=== PATIENT | female | born 1980 | race Caucasian/White ===

== ENCOUNTER 2017-02-08 03:21 | Emergency (ER) | payer SELFPAY ==
[~2017-02-08] VITALS: Ht 167.6 cm; Wt 71.0 kg
[2017-02-08 03:26] VITALS: Ht 167.6 cm; Wt 71.0 kg
[2017-02-08 04:16] VITALS: BP 107/70; PULSE 68; RESP 17
--- NOTE | 2017-02-08 04:51 | ERD ---
ER Documentation Chief Complaint Chief Complaint bib friends for etoh, HPI Patient is a 36-year-old female who presents with alcohol intoxication causing her to have difficulty standing and speaking. Her friends state that they were drinking vodka with T prior to going to an art show. They also drink beer at the art show. The patient denies using any drugs. She denies amnesia to events. According to friends, the patient was missing for 1 hour. The patient states that she was wandering around the art show. When the friends found the patient she seemed very intoxicated and they were concerned so they called 911. She is brought to the ER by ambulance. After arrival she became more alert. She denies injury or fall. She denies emotional upset or other ingestion. She denies any physical complaints at this time. The patient states that she did not eat well today. She denies vomiting. ROS All systems reviewed and are negative except as per history of present illness. Allergies Allergies: Coded Allergies: No Known Allergy (Unverified , 02/08/17) PMhx/Soc Past medical's medical history: None Past surgical history: None Social history: Drinks alcohol, denies tobacco or illicit drug FmHx Family History: No coronary disease, No diabetes Physical Exam Vitals Vital Signs Date Time Temp Pulse Resp B/P Pulse Ox O2 Delivery O2 Flow Rate FiO2 02/08/17 04:16 68 17 107/70 100 Room Air 02/08/17 03:26 98.5 105 18 115/73 100 Physical Exam Const: Alert, no acute distress Head: Atraumatic Eyes: Normal Conjunctiva, No pallor, no icterus ENT: Normal External Ears, Nose and Mouth. Mucous membranes moist Neck: Full range of motion..~ No meningismus. Resp: Clear to auscultation bilaterally Cardio: Regular rate and rhythm, no murmurs Abd: Soft, non tender, non distended. Normal bowel sounds Skin: No petechiae or rashes Back: No midline or flank tenderness Ext: No cyanosis, or edema Neur: Awake and alert, Cranial nerves II through XII intact bilaterally, strength and sensation full in 4 extremities, mild slurred speech Psych: Normal Mood and Affect, Appears slightly embarrassed Procedures/MDM MDM: Patient is a 36-year-old female who presents to the ER with alcohol intoxication causing her to have lethargy requiring assistance from her friends. Shortly after arrival to the ER, the patient returned to her baseline. She has very mild residual signs of intoxication and is able to interact with me appropriately. She has capacity for decision-making, and states that she would like to go home. There is no evidence of any psychiatric condition, coingestion, or trauma. She is asymptomatic. I believe that she is stable for discharge home in the presence of her friends will drive her. Her friends appear to be sober and state that they will assist her to go home and get to bed. Advised them on return precautions. Departure Diagnosis: Primary Impression: Alcoholic intoxication Complication of substance-induced condition: uncomplicated Qualified Code: F10.920 - Alcoholic intoxication without complication Condition: SUSAN Luevano MD Feb 08, 2017 04:51
== END 2017-02-08 05:13 | disposition left against medical advice (07) ==
LOC: E/R 03:21
DX: F10.920 Alcohol use, unspecified with intoxication, uncomplicated (principal)
CPT/HCPCS: 99283